=== PATIENT | female | born 1960 | race Caucasian/White ===

== ENCOUNTER 2016-09-09 10:09 | Emergency (ER) | payer OTHER ==
[~2016-09-09] VITALS: Ht 160 cm; Wt 75.5 kg
[2016-09-09 10:12] VITALS: Ht 160 cm; Wt 75.5 kg
[2016-09-09] MEDS ORDERED: ARTIFICIAL TEARS 15 ML OPH BOTH EYES STA (10:16)
[2016-09-09] MEDS ORDERED: predniSONE 20 MG TAB PO ONE (10:30)
[2016-09-09] MEDS ORDERED: ACYCLOVIR 800 MG TAB PO ONE (10:30)
--- NOTE | 2016-09-09 10:33 | ERD ---
ER Documentation Chief Complaint Date/Time DATE: 09/09/16 TIME: 10:30 Chief Complaint left sided numbness and weakness started at 0800 this morning HPI This [age]-year-old female presents to the emergency room for evaluation of left- sided facial numbness and weakness which started 4 days ago. The patient denies any numbness or tingling in the rest of her body, and denies any difficulty ambulating or weakness in her left arm or left lower leg. The patient was brought in for evaluation by her . The states that the patient has been acting normally, has had no altered mental status ROS All systems reviewed and are negative except as per history of present illness. PMhx/Soc History of Surgery: No Anesthesia Reaction: No Hx Neurological Disorder: No Hx Respiratory Disorders: No Hx Cardiac Disorders: Yes (HTN, Hyperlipidemia) Hx Psychiatric Problems: No Hx Miscellaneous Medical Probl: Yes ("Liver infection") Hx Alcohol Use: No Hx Substance Use: No Hx Tobacco Use: No Smoking Status: Never smoker Physical Exam Vitals Vital Signs Date Time Temp Pulse Resp B/P Pulse Ox O2 Delivery O2 Flow Rate FiO2 09/09/16 10:12 98.2 99 18 179/105 99 Physical Exam INITIAL VITAL SIGNS: Reviewed by me GENERAL: The patient is well developed and appropriate for usual state of health in no apparent distress HEENT: Inability to close left eye completely, pupils equal, round, and reactive to light. EOMI. There is no scleral icterus. NECK: C-spine is soft and supple, there is no meningismus. There is no cervical lymphadenopathy. LUNGS: Clear to auscultation bilaterally. There are no rales, wheezes or rhonchi. HEART: Regular rate and rhythm, no murmurs, clicks, rubs or gallops. ABDOMEN: Soft, non-tender, non-distended. There are bowel sounds in all four quadrants. No rebound or guarding. EXTREMITIES: There is no peripheral cyanosis or edema. No focal swelling or erythema. NEUROLOGICAL: Left-sided facial droop with inability to close left eye, inability to raise left eyebrow, the patient moves all four extremities with 5/ 5 strength. . Normal gait. Alert and oriented. Reflexes intact and symmetric bilaterally SKIN: There is no apparent rash or petechiae. HEME/LYMPHATIC: There is no evidence of excessive bruising or lymphedema. PSYCHIATRIC: The patient does not appear anxious or depressed. Results 24 hrs Current Medications Medications (Trade) Dose Ordered Sig/Karen Route PRN Reason Start Time Stop Time Status Last Admin Dose Admin Acyclovir (Zovirax) 800 mg ONCE ONCE PO 09/09/16 10:30 09/09/16 10:31 Prednisone (Prednisone) 40 mg ONCE ONCE PO 09/09/16 10:30 09/09/16 10:31 Eye Lubricant (Artificial Tears Oph) 2 drop QID STAT BOTH EYES 09/09/16 10:16 09/09/16 10:18 DC Procedures/MDM This 55-year-old female presents to the emergency room for evaluation of left- sided facial droop. When I evaluated her this patient did have a left-sided facial droop with inability to lift her left eyebrow. She has no other focal neurological deficits, and her symptoms are consistent with a Vera's palsy. This patient is alert oriented to person place and time, no focal neurological deficits, and states that his symptoms have been present for 4 days duration. This patient was given acyclovir and prednisone in the emergency room. She was also given artificial tears in the emergency room, and will be discharged home with a prescription for acyclovir, prednisone, and artificial tears. Departure Diagnosis: Primary Impression: Vera's palsy Condition: Stable ANA BARTHOLOMEW DO September 09, 2016 10:33
[2016-09-09] MEDS ORDERED: LEVO50TA71 PO (10:55)
--- NOTE | 2016-09-09 11:25 | RADRPT ---
PROCEDURE: CT Brain without contrast. CLINICAL INDICATION: Weakness. Right facial paralysis. TECHNIQUE: A CT of the brain without contrast was performed utilizing axial sections from the skul l base through the vertex. The patient was scanned without intravenous contrast enhancement. Sagitta l and coronal reformatted images were obtained using the data from the axial images. Total exam DLP is 630.20 mGy-cm. CTDIvol is 44.19 mGy. One or more of the following dose reduction techniques we re used: Automated exposure control, adjustment of the mA and/or kV according to patient size, use o f iterative reconstruction technique. COMPARISON: None available FINDINGS: There is normal hoang-white matter differentiation. The ventricles and cisterns are normal. There is no intracranial hemorrhage or space-occupying lesion. There is no skull fracture or lytic lesion. IMPRESSION: 1. Normal noncontrast CT scan of the brain. 2. No intracranial hemorrhage. 3. Correlation with MRI to evaluate the facial paralysis is advised. RPTAT: QQ .Lincoln Whitman MD, MD Date Time Electronically viewed and signed by .Lincoln Whitman MD, on 09/09/2016 11:24 .R/
[2016-09-09] MEDS ORDERED: ACYC800T57 PO (11:32)
[2016-09-09] MEDS ORDERED: DEXT1DRO OP (11:32)
[2016-09-09] MEDS ORDERED: PRED20TA PO (11:32)
[2016-09-09 11:42] VITALS: BP 139/74; PULSE 85; RESP 18
== END 2016-09-09 11:46 | disposition home or self-care (01) ==
LOC: E/R 10:09
DX: G51.0 Bell's palsy (principal); I10 Essential (primary) hypertension
CPT/HCPCS: 70450; J7512; Z7502; Z7610